=== PATIENT | female | born 1965 | race Caucasian/White ===

== ENCOUNTER 2017-06-21 14:56 | Emergency (ER) | payer BC, OTHER ==
[2017-06-21 15:06] VITALS: RESP 16; TEMP 97.9
--- NOTE | 2017-06-21 15:28 | EDPHY ---
H & P Stated Complaint: R 3rd,4th finger, R knee, R foot injury, head trauma from fall yesterday Time Seen by Provider: 06/21/17 15:12 HPI/ROS: CHIEF COMPLAINT: Fall HISTORY OF PRESENT ILLNESS: The patient is a 52-year-old female who comes to the emergency department after a fall yesterday. She states she slipped over a mat at work and fell and now has pain to her right great toe as well as her right middle finger. She states that she jammed her finger against the wall and stubbed her toe. She also states that she impacted her right knee and head and arm but states that these are not painful and she is not concerned about them. REVIEW OF SYSTEMS: Constitutional: denies: chills, fever, recent illness, recent injury EENTM: denies: blurred vision, double vision, nose congestion Respiratory: denies: cough, shortness of breath Cardiac: denies: chest pain, irregular heart rate, lightheadedness, palpitations Gastrointestinal/Abdominal: denies: abdominal pain, diarrhea, nausea, vomiting, blood streaked stools Genitourinary: denies: dysuria, frequency, hematuria, pain Musculoskeletal: See HPI Skin: denies: lesions, rash, jaundice, bruising Neurological: denies: headache, numbness, paresthesia, tingling, dizziness, weakness Hematologic/Lymphatic: denies: blood clots, easy bleeding, easy bruising Immunologic/allergic: denies: HIV/AIDS, transplant EXAM: GENERAL: Well-appearing, well-nourished and in no acute distress. HEAD: Atraumatic, normocephalic. EYES: Pupils equal round and reactive to light, extraocular movements intact, sclera anicteric, conjunctiva are normal. ENT: TMs normal, nares patent, oropharynx clear without exudates. Moist mucous membranes. NECK: Normal range of motion, supple without lymphadenopathy or JVD. LUNGS: Breath sounds clear to auscultation bilaterally and equal. No wheezes rales or rhonchi. HEART: Regular rate and rhythm without murmurs, rubs or gallops. ABDOMEN: Soft, nontender, normoactive bowel sounds. No guarding, no rebound. No masses appreciated. BACK: No CVA tenderness, no spinal tenderness, step-offs or deformities EXTREMITIES: Tenderness to right great toe, minimal bruising, no swelling or deformity. Normal range of motion, no pitting or edema. No clubbing or cyanosis. Normal movement to right middle finger with flexion extension of all tendons at the PIP and the IP joints. No significant swelling or bruising. She does however have pain with movement. Normal capillary refill. NEUROLOGICAL: Cranial nerves II through XII grossly intact. Normal speech, normal gait. 5/5 strength, normal movement in all extremities, normal sensation PSYCH: Normal mood, normal affect. SKIN: Warm, dry, normal turgor, no visible rashes or lesions. Source: Patient Exam Limitations: No limitations - Personal History LMP (Females 10-55): Hysterectomy Current Tetanus/Diphtheria Vaccine: Unsure Current Tetanus Diphtheria and Acellular Pertussis (TDAP): Unsure - Medical/Surgical History Hx Asthma: No Hx Chronic Respiratory Disease: No Hx Diabetes: No Hx Cardiac Disease: No Hx Renal Disease: No Hx Cirrhosis: No Hx Alcoholism: No Hx HIV/AIDS: No Hx Splenectomy or Spleen Trauma: No Other PMH: Hysterectomy, back surgery x 6, chronic back pain - Family History Significant Family History: No pertinent family hx - Social History Smoking Status: Never smoked Alcohol Use: Sober Drug Use: None Constitutional: Initial Vital Signs Temperature (C) 36.6 C 06/21/17 15:00 Heart Rate 78 06/21/17 15:00 Respiratory Rate 16 06/21/17 15:00 Blood Pressure 137/82 H 06/21/17 15:00 O2 Sat (%) 95 06/21/17 15:00 O2 Delivery Mode Room Air Allergies/Adverse Reactions: hydromorphone [From Dilaudid] Allergy (Verified 06/21/17 15:07) Pt reports vomiting morphine [Morphine] Allergy (Verified 06/21/17 15:07) Pt reports vomiting Home Medications: Medication Instructions Recorded NK [No Known Home Meds] 06/21/17 Medical Decision Making - Diagnostics Imaging Results: Imaging Impressions Foot X-Ray 06/21/17 15:16 Impression: No fracture. Hand X-Ray 06/21/17 15:16 Impression: No acute osseous abnormality seen right hand. Imaging: Discussed imaging studies w/ bingo caller Radiologist Procedures: Procedure: Splint placement. A finger splint was applied. After application of the splint I returned and re- examined the patient. The splint was adequately immobilizing the joint and distal to the splint the patient's circulation and sensation was intact. ED Course/Re-evaluation: 4:30 p.m. we discussed the x-ray results. Patient is reassured. I do have some concern about the functionality of the tendon in her right middle finger. She does have movement but has significant pain. I will place her in a splint and have her follow up with Hand surgery. She understands and agrees with this plan. Differential Diagnosis: Partial list of the Differential diagnosis considered include but were not limited to; contusion, fracture, tendon injury and although unlikely based on the history and physical exam, I also considered head injury, back injury, dislocation, assault. I discussed these differential diagnoses and the plan with the patient as well as the usual and expected course. The patient understands that the diagnosis is provisional and that in medicine we are not always correct and that further workup is often warranted. Usual and customary warnings were given. All of the patient's questions were answered. The patient was instructed to return to the emergency department should the symptoms at all worsen or return, otherwise to followup with the physician as we discussed. Departure - Departure Disposition: Home, Routine, Self-Care Clinical Impression: Contusion of right foot Qualifiers: Encounter type: initial encounter Qualified Code(s): S90.31XA - Contusion of right foot, initial encounter Injury of right index finger Qualifiers: Encounter type: initial encounter Qualified Code(s): S69.91XA - Unspecified injury of right wrist, hand and finger(s), initial encounter Condition: Fair Instructions: Jammed Finger (ED), Hematoma (ED) Referrals: NONE *PRIMARY CARE P,. [Primary Care Provider] - As per Instructions Magdi Bernal MD [Medical Doctor] - As per Instructions Stand Alone Forms: Work Limited Duty, Work Comp Follow Up
[2017-06-21 16:54] VITALS: BP 150/95; PULSE 70; O2SAT 94
== END 2017-06-21 16:54 | disposition home or self-care (01) ==
LOC: CED 14:56
DX: S90.31XA Contusion of right foot, initial encounter (principal); S69.91XA Unspecified injury of right wrist, hand and finger(s), initial encounter; W01.0XXA Fall on same level from slipping, tripping and stumbling without subsequent striking against object, initial encounter; Y92.69 Other specified industrial and construction area as the place of occurrence of the external cause; Y99.0 Civilian activity done for income or pay; Y93.89 Activity, other specified
CPT/HCPCS: 73130-PO; 73630-PO; L3925